=== PATIENT | female | born 1975 | race Caucasian/White ===

== ENCOUNTER 2016-09-20 15:09 | Emergency (ER) | payer OTHER ==
[2016-09-20 15:18] VITALS: RESP 16; TEMP 98.1; O2SAT 96
--- NOTE | 2016-09-20 15:49 | UCPHY ---
H & P Time Seen by Provider: 09/20/16 15:40 Patient Type: New HPI/ROS: CHIEF COMPLAINT: Sacral injury HISTORY OF PRESENT ILLNESS: The patient is a 40-year-old female presenting with a sacral pain. The patient fell off a step stool while reaching for something in the closet about 2 hours ago. She landed on her tailbone. She denies other injuries. She reports severe pain with movement. No hematuria. She has not had a bowel movement since the injury. The patient took 400mg Advil and applied cannabis oil to the area of pain. REVIEW OF SYSTEMS: Constitutional: No fever, no chills. Genitourinary: No hematuria or frequency. Musculoskeletal: Sacral pain. Skin: No rashes. Neurological: No headache. Past Medical/Surgical History: Denies. Social History: with 3 children. Smoking Status: Never smoked Physical Exam: General Appearance: Alert, no distress. Afebrile. Normal phonation. No respiratory distress. Neurological: Ox3. No motor weakness. Sensation intact. Gait nl. Skin: Warm and dry, no rashes. Musculoskeletal: No joint swelling. There is no soft tissue swelling or ecchymosis present over the buttock. However just at the junction of the sacrum /coccyx there is tenderness. No crepitus Constitutional: Initial Vital Signs Temperature (C) 36.7 C 09/20/16 15:16 Heart Rate 65 09/20/16 15:16 Respiratory Rate 16 09/20/16 15:16 Blood Pressure 112/95 H 09/20/16 15:16 O2 Sat (%) 96 09/20/16 15:16 O2 Delivery Mode Room Air Allergies/Adverse Reactions: No Known Allergies Allergy (Unverified 09/20/16 15:16) Home Medications: Medication Instructions Recorded NK [No Known Home Meds] 09/20/16 Medical Decision Making - Diagnostics Imaging: Imaging Impressions Sacrum and Coccyx X-Ray 09/20/16 16:00 Impression: 1. Transverse minimally displaced fracture at the sacrococcygeal junction. Films by me on the PAC system ED Course/Re-evaluation: The patient presents with sacral pain after falling from a step stool 2 hours ago. Patient has tenderness to the sacral region. Plan for x-ray to look for displaced fracture. I discussed pain medication with the patient, patient declines. I have instructed her to alternate Tylenol and Ibuprofen. She will filler picker a 3% lidocaine patch to help her pain. I viewed the X-ray of the sacrum and coccyx myself on the PACS system. X-ray shows sacrococcygeal fracture. Please see the full radiology report in the imaging section. 5:00 p.m.: I discussed findings with the patient. I referred the patient to an orthopedic surgeon for followup. Differential Diagnosis: The differential diagnosis includes but is not limited to: Fracture, Sprain, Strain, Dislocation, Nerve injury, Contusion Departure - Departure Disposition: Home, Routine, Self-Care Condition: Good Instructions: Sacral Fracture (ED) Additional Instructions: Adult Pain Control: We recommend Acetaminophen (Tylenol) and Ibuprofen (Motrin,Advil) for pain and fever control. When pain severe, both drugs can be used at the same time, Please note the time differences. Your dose is: Acetaminophen 1000mg every 6 hours Ibuprofen 600mg every 8 hours with food. Note: do not take Acetaminophen with Hydrocodone (Vicodin, Lortab) or Oycodone (Percocet). These medications also contain Acetaminophen. No more than 3000mg of Acetaminophen should be taken in 24 hours (for an adult). I recommend purchasing Aspercreme lidocaine patch. Apply as directed. Remove for 12 hours daily. I additionally recommend Colace to soften your stools. You have been referred to the [facility] orthopedic surgeon. Please call tomorrow to arrange a followup appointment. Referrals: Hailey Ellis PA [Primary Care Provider] - As per Instructions Elvin Joe MD [Medical Doctor] - As per Instructions (Orthopedic surgery) - PQRS PQRS Measurement: Na Report Scribed for: Anjel Cunha Report Scribed by: Yolette Valadez Date of Report: 09/20/16 Time of Report: 15:51
[2016-09-20 17:18] VITALS: BP 115/92; PULSE 62
== END 2016-09-20 17:15 | disposition home or self-care (01) ==
LOC: CED 15:09
DX: S32.10XA Unspecified fracture of sacrum, initial encounter for closed fracture (principal); W19.XXXA Unspecified fall, initial encounter
CPT/HCPCS: 72220-PO; 99203-PO; G0463-PO

== ENCOUNTER → 2017-04-20 | Outpatient (CLI) | payer OTHER | LOC: BRMIMAGING 12:52 | PROVIDERS: ATTEND Physician Assistant Medical | DX: Z12.31 Encounter for screening mammogram for malignant neoplasm of breast (principal) | CPT/HCPCS: G0202 ==